=== PATIENT | female | born 2005 | race Caucasian/White ===

== ENCOUNTER 2025-04-14 18:20 | Emergency (ER) | payer SELFPAY ==
[2025-04-14 19:12] LABS: BASOPHILS ABSOLUTE AUTO 0.03 10^3/uL (0.00-0.10); BASOPHILS PERCENT AUTO 0.3 % (0.0-1.0); EOSINOPHILS ABSOLUTE AUTO 0.16 10^3/uL (0.10-0.30); EOSINOPHILS PERCENT AUTO 1.8 % (1.0-3.0); IMMATURE GRAN ABSOLUTE AUTO 0.00 10^3/uL (0.00-0.04); IMMATURE GRAN PERCENT AUTO 0.0 % (0.0-0.4); LYMPHOCYTES ABSOLUTE AUTO 2.64 10^3/uL (1.00-4.00); LYMPHOCYTES PERCENT AUTO 30.2 % (20.0-40.0); MEAN PLATELET VOLUME 10.8 fL (7.4-10.4); MONOCYTES ABSOLUTE AUTO 0.62 10^3/uL (0.10-0.80); MONOCYTES PERCENT AUTO 7.1 % (2.0-8.0); NEUTROPHILS ABSOLUTE AUTO 5.28 10^3/uL (2.50-7.00); NEUTROPHILS PERCENT AUTO 60.6 % (50.0-70.0); PLATELET COUNT,PLT 245 10^3/uL (150-400); RED BLOOD CELL COUNT 4.47 10^6/uL (3.80-5.50); RED CELL DISTRIBUTION WIDTH 12.5 % (11.5-14.5); WHITE BLOOD CELL COUNT,WBC 8.73 10^3/uL (5.00-10.00)
== END 2025-04-14 19:48 | disposition home or self-care (01) ==
LOC: KA.ED 18:20
DX: B34.9 Viral infection, unspecified (principal); J02.9 Acute pharyngitis, unspecified
CPT/HCPCS: 36415; 85025; 87428-QW; 87651; 99283